=== PATIENT | male | born 2000 | race Two or more races ===

== ENCOUNTER 2020-12-17 02:29 | Emergency (ER) | payer OTHER ==
[~2020-12-17] VITALS: Ht 180.3 cm; Wt 77.1 kg
[2020-12-17] MEDS ORDERED: IPRATROPIUM BROM 0.5 MG/2.5ML INH SOL NEB ONE ×2 (02:45→08:15)
[2020-12-17] MEDS ORDERED: ALBUTEROL SULF 2.5 MG/0.5ML(0.5%) NEB SOLN NEB ONE ×2 (02:45→08:15)
[2020-12-17] MEDS ORDERED: methylPREDNISolone SOD SUCC 125 MG/2 ML VL IM ONE (08:15)
[2020-12-17 09:02] VITALS: BP 128/74
== END 2020-12-17 09:05 | disposition home or self-care (01) ==
LOC: ER 02:29
DX: J45.901 Unspecified asthma with (acute) exacerbation (principal)
CPT/HCPCS: 71045; 94640; 96372; 99285; J2930; J7644